=== PATIENT | female | born 1960 | race Caucasian/White ===

== ENCOUNTER → 2024-03-02 | Outpatient (CLI) | payer MEDICARE ==
[2024-03-02 17:12] LABS: INR 0.9 (<1.2); Partial Thromboplastin Time 24.9 sec (22.0-30.0); Prothrombin Time 10.4 sec (10.0-12.5)
[2024-03-03 02:04] LABS: Basophils # (A) 0.05 X 10*3/uL (0.00-0.10); Basophils % (A) 0.8 %; Eosinophils # (A) 0.07 X 10*3/uL (0.04-0.35); Eosinophils % (A) 1.1 %; HCT 41.4 % (37.2-46.3); HGB 13.4 g/dL (12.0-15.0); Lymphocytes # (A) 1.78 X 10*3/uL (0.90-5.00); MCH 29.5 pg (27.0-32.0); MCHC 32.4 g/dL (32.0-37.0); MCV 91.2 FL (80.0-97.0); Monocytes # (A) 0.45 X 10*3/uL (0.20-1.00); Monocytes % (A) 6.8 %; NRBC Per 100 WBC 0 X 10*3/uL (0.00-0.01); Neutrophils # (A) 4.24 X 10*3/uL (1.80-7.70); Neutrophils % (A) 64.1 %; Platelet Count 367 X 10*3/uL (140-440); RBC 4.54 X 10*6/uL (4.10-5.20); RDW 12.7 % (11.5-14.5)
[2024-03-03 02:51] LABS: BUN/Creat Ratio 9.67 Ratio (12.00-20.00); Blood Urea Nitrogen 8.7 mg/dL (9.0-27.0); Chloride 101 mmol/L (96-109); Glucose 111 mg/dL (70-110); Sodium 138 mmol/L (135-145)
[2024-03-03 02:52] LABS: ALT 23 U/L (8-44); AST 34 U/L (13-35); Albumin 4.8 g/dL (3.8-4.9); Albumin/Globulin Ratio 1.78 Ratio (1.60-3.17); Alkaline Phosphatase 91 U/L (41-126); Carbon Dioxide 26.9 mmol/L (21.6-31.8); Globulin 2.7 g/dL (1.6-3.3); Total Bilirubin 0.6 mg/dL (0.3-1.2); Total Protein 7.5 g/dL (6.2-8.2)
== END | disposition home or self-care (01) ==
LOC: LABPAT 16:24
PROVIDERS: ATTEND Orthopaedic Surgery
DX: Z01.812 Encounter for preprocedural laboratory examination (principal); E11.9 Type 2 diabetes mellitus without complications; Z22.322 Carrier or suspected carrier of Methicillin resistant Staphylococcus aureus
CPT/HCPCS: 80053; 83036; 85025; 85610; 85730; 86850; 86900; 86901; 87070

== ENCOUNTER 2024-03-11 06:20 | Day surgery (SDC) | payer MEDICARE ==
[~2024-03-11 06:20] MED LIST: TRANEXAMIC 1,000 MG/100ML-NACL 1,000 MG in SALINE 1 100ML.BAG IV PRN; TRANEXAMIC 1,000 MG/100ML-NACL 1,000 MG in SALINE 1 100ML.BAG IVPB PRN
[2024-03-11] MEDS: LACTATED RINGERS 1,000 ML IV SCH ×2 (07:00→15:10)
[2024-03-11] MEDS: DEXAMETHASONE SOD PHOSPHATE 10 MG/ML 1 ML VIAL IV PRN (07:53)
[2024-03-11] MEDS: FAMOTIDINE 20 MG/2 ML VIAL IVP PRN (07:53)
[2024-03-11] MEDS: ONDANSETRON 4 MG/2 ML VIAL IVP PRN (07:53)
[2024-03-11] MEDS: MIDAZOLAM 2 MG/2 ML VIAL IVP ONE (08:05)
[2024-03-11] MEDS: KETOROLAC 15 MG/ML 1 ML VIAL IVP PRN (08:19)
[2024-03-11] MEDS: ACETAMINOPHEN TAB 500 MG TAB PO PRN (08:20)
[2024-03-11] MEDS: DOCUSATE 100 MG CAP PO PRN (08:20)
[2024-03-11] MEDS: oxyCODONE ER 10 MG TAB.ER.12H PO PRN (08:20)
[2024-03-11] MEDS ORDERED: ROCURONIUM 10 MG/ML (5 ML VIAL) IV ONE (10:10)
[2024-03-11] MEDS ORDERED: PROPOFOL 10 MG/ML 20 ML VIAL IV ONE (10:10)
[2024-03-11] MEDS ORDERED: GLYCOPYRROLATE 0.2 MG/ML 2 ML VIAL ONE (10:10)
[2024-03-11] MEDS ORDERED: MIDAZOLAM 2 MG/2 ML VIAL ONE (10:10)
[2024-03-11] MEDS ORDERED: ROPIVACAINE 5 MG/ML 30 ML VIAL ONE (10:10)
[2024-03-11] MEDS ORDERED: LIDOCAINE 1% INJ 10MG/ML (20 ML MDV) ONE (10:10)
[2024-03-11] MEDS ORDERED: fentaNYL (PF) 50 MCG/ML 2 ML AMP ONE (10:10)
[2024-03-11] MEDS ORDERED: NEOSTIGMINE 1 MG/ML 10 ML VIAL ONE (10:10)
[2024-03-11] MEDS: ROPIVACAINE/EPI/CLONIDINE/KET 50 ML SYRINGE MISCELLANE PRN (10:54)
--- NOTE | 2024-03-11 11:30 | P.ANPRN ---
Procedure Note - Anesthesia - Nerve Block Performed Right [place] Single Time Out Performed: Yes ([id number]) Date of Procedure: 03/11/24 Procedure Start Time: : Procedure Stop Time: 08: Location of Patient: PreOp Indication: Acute Post-Operative Pain, Requested by Surgeon Specifically requested for management of pain by DrBianka: Norman Salgado Sedation Type: Sedate with meaningful contact maintained Preparation: Sterile Prep Position: Supine Catheter: None Needle Types: Pajunk Needle Gauge: 21 Ultrasound used to visualize needle placement: Yes Ultrasound used to observe medication spread: Yes Injectate: 0.5% Ropivacaine (see comment for volume) (30cc) Blood Aspirated: No Pain Paresthesia on Injection Noted: No Resistance on Injection: Normal Image Stored and Saved: Yes Events: Uneventful and Well Tolerated
[2024-03-11] MEDS: LACTATED RINGERS 1,000 ML IV ONE (12:09)
--- NOTE | 2024-03-11 12:12 | P.OP ---
Date of Procedure: 03/11/24 Preoperative Diagnosis: Severe right hip osteoarthritis Postoperative Diagnosis: same Procedure(s) Performed: right direct anterior total hip arthroplasty Implants: 1. [place] Trident II Acetabular Cup, Size #46 2. Claire Insignia Size #3 Femoral Stem, Standard Offset 3. Dual Mobility OD 36 mm, ID 22.2 mm, +0 mm neck Anesthesia: GETA, regional Surgeon: Norman Salgado Software Design Engineer #1: Anali Kulkarni Software Design Engineer #2: Jake Posada Estimated Blood Loss (ml): 200 IV fluids (ml): 1,200 Pathology: none sent Condition: stable Disposition: PACU Indications for Procedure: I had a long discussion with the patient in the office on the potential risks and complications of an elective total hip replacement through a direct anterior approach. Risks discussed include, but are certainly not limited to, risks from anesthesia, superficial infection requiring local wound care or antibiotics, deep blayne-prosthetic joint infection and the treatment required to eradicate infection, intraoperative fracture, postoperative periprosthetic fracture, damage to local blood vessels or nerves particularly the lateral femoral cutaneous nerve, delayed wound healing requiring local wound care or possibly surgical debridement, hip dislocation, leg length discrepancy, soft tissue irritation around the total hip implant such as iliopsoas tendinitis or trochanteric bursitis, wear and osteolysis from the implants, squeaking or audible noises, groin pain, thigh pain, heterotopic ossification, stiffness, aseptic loosening of the implants, dissatisfaction with surgical outcome, need for revision surgery, DVT, PE, swelling of the operative extremity, acute coronary event, stroke, failure to thrive, and possibly loss of life or limb. The patient understands that while these are the most common complications after an elective hip replacement there are certainly other less common complications possible. They were given ample time to ask questions regarding the potential complications of a hip replacement. Following our discussion the patient provided their verbal and written consent to go forward with an elective total hip replacement. Description of Procedure: The patient was identified in the preoperative holding area and the correct hip was marked with my initials. I reviewed the procedure and consent with the patient. All of their questions were answered. The patient was then brought back into the operating room by anesthesia. While on the [facility] anesthesia was administered by the anesthesia team. Preoperative antibiotics and tranexamic acid were also given. After the patient was under anesthesia I examined their ankles to determine their preoperative leg length discrepancy. The skin over the anterior aspect of the hip was shaved to remove hair over the site of planned incision. Both feet and ankles were padded with webril and boots for the Eas[place] were applied. The patient was then carefully transferred onto the [place] table. A perineal post was immediately placed. The arms were placed on arm holders and were well-padded. Both boots were secured to the spars on the Easley table. The patient was positioned so that the pelvis was centered over the post. Nonsterile drapes were applied. A timeout was performed identifying the correct patient, operative extremity, and procedure. At this point fluoroscopy was brought in to take preoperative images of the pelvis and operative hip. Using the standing AP pelvis from the office as a template, a comparable image was obtained with fluoroscopy. A metallic bar was used to create a bi-ischial line for use as a reference to leg length adjustments during the procedure. Global offset was also measured on both the operative and nonoperative leg. Fluoroscopy was then brought out and a pre-scrub using a chlorhexidine scrub brush was performed. The operative limb was then prepped and draped in the standard sterile fashion. An anterior longitudinal incision was made lateral and distal to the ASIS. The skin and subcutaneous tissues were incised sharply. The underlying tensor fascia was identified and incised in its midportion. The fascia was dissected free from the underlying muscle and the muscle belly was retracted. A blunt tipped cobra retractor was placed over the superior neck under the muscle fibers of the gluteus minimus. The deep enveloping fascia of the tensor was incised. The anterior leash of vessels were then identified and cauterized. The fascia between the rectus and the capsule was then incised and the pre-capsular fat was excised. A second Cobra was placed inferior to the neck. The interval between the rectus and iliocapsularis and the hip capsule was developed and a retractor was placed carefully over the anterior rim of the acetabulum. A T-shaped anterior capsulotomy was performed. The superior capsular leaflet was left in place in the inferior capsular flap was excised. The Cobra retractors were placed intracapsularly. We then made a femoral neck osteotomy according to preoperative and intraoperative templating and confirmed the level of the osteotomy using fluoroscopic imaging. The femoral head was removed, passed off to the back table, and sized. The superior capsular flap was excised. Retractors were placed circumferentially exposing the acetabulum. We then circumferentially debrided the acetabulum free of labrum and osteophytes. The pulvinar was removed to fully visualize the cotyloid fossa. We then sequentially reamed to achieve peripheral fit and excellent bleeding subchondral bone. The socket was thoroughly irrigated. The acetabular component was impacted into the appropriate position using fluoroscopy to guide version, inclination, and depth of insertion taking care to have a comparable image of the AP pelvis to the standing image taken in the office. An excellent press-fit was achieved and final position was confirmed using fluoroscopy. The press fit was augmented with bony cancellus dome screws. The liner was then impacted into the socket. Attention was then turned to the femur. The remnant dorsal lateral capsule was excised. The short external rotators were visible and protected. A bone hook was used to confirm appropriate translation of the trochanter away from the acetabulum. The leg was then extended and adducted and the bone hook was used to elevate the femur for broaching. A box osteotome and blunt tipped canal sound was then utilized to gain access to the femoral canal. We then sequentially broached the femur in appropriate anteversion until excellent torsional stability was achieved. The neck cut was brought flush to the trial broach with a calcar planar. A trial neck and head were then placed onto the broach and the hip was atraumatically reduced under direct visualization. External rotation to 90 was performed to assess stability. Fluoroscopy was brought in. An AP and lateral fluoroscopic image of the proximal femur was obtained to assess position and fill of the trial broach. An AP of the pelvis was then obtained and matched to the preoperative image taken. A bi-ischial bar was then placed and measurements were taken to assess changes in length and offset. The hip was then carefully dislocated, the proximal femur was exposed, and the trial implants were removed. The wound and proximal femur was thoroughly irrigated using sterile saline and pulsatile lavage. The final femoral implant was dispensed and gently tapped into place generating an excellent press-fit. The trunnion was cleansed and the final head was tapped into place to engage the Jalloh taper. The acetabulum was irrigated and visualized to be free of debris. The hip was carefully reduced. Stability was checked clinically with external rotation to 90 and there was no evidence of instability. Final fluoroscopic images were taken. The wound was then thoroughly irrigated and soaked with a dilute Betadine rinse for 3 minutes. 3 L of sterile saline was irrigated through the wound using pulsatile lavage. Local anesthetic cocktail was injected into the soft tissues around the surgical field. The wound was then closed in layers. A sterile dressing was placed over the surgical incision. The drapes were taken down and the patient was carefully transferred off of the Easley table. Following removal of the boots the leg lengths felt acceptable. The patient was then taken to recovery room having tolerated the procedure well. Jake Posada PA-C was required as a skilled accounting assistant due to the complexity of surgery for patient positioning, draping, exposure, retraction, closure of wound and application of dressing. PLAN: The patient can weight-bear as tolerated on the operative extremity. DVT prophylaxis with aspirin 81 mg twice a day based on preoperative risk stratification. Physical therapy for gait training. Leave surgical dressing in place. Internal medicine for perioperative medical management. If the patient does well and is comfortable she can go home later this afternoon, otherwise we'll plan on keeping her until tomorrow morning.
--- NOTE | 2024-03-11 12:18 | XR ---
EXAMINATION TYPE: XR Hip Limited RT DATE OF EXAM: 03/11/2024 COMPARISON: NONE HISTORY: Postop TECHNIQUE: One view submitted. FINDINGS: There is postsurgical change compatible hip replacement surgery. IMPRESSION: 1. Postoperative change.
--- NOTE | 2024-03-11 12:19 | FL ---
EXAMINATION TYPE: FL guidance operating room DATE OF EXAM: 03/11/2024 HISTORY: Fluoroscopy time Total dose area product (DAP) in uGy*m?, mGy*cm? (or similar): 2.3872 IMPRESSION: 1. Fluoroscopy time.
[2024-03-11] MEDS ORDERED: HYDROmorphone 0.5 MG/0.5 ML SYRINGE IVP PRN ×3 (12:47)
[2024-03-11] MEDS ORDERED: NALOXONE 0.4 MG/ML 1 ML VIAL IV PRN (12:47)
[2024-03-11] MEDS ORDERED: ONDANSETRON 4 MG/2 ML VIAL IVP PRN (12:47)
[2024-03-11] MEDS ORDERED: MAGNESIUM HYDROXIDE 2,400 MG/30 ML CUP PO PRN (12:47)
[2024-03-11] MEDS: HYDROmorphone 0.5 MG/0.5 ML SYRINGE IVP PRN (13:21)
[2024-03-11] MEDS: ONDANSETRON 4 MG/2 ML VIAL IVP ONE (14:13)
[2024-03-11] MEDS: DEXAMETHASONE SOD PHOSPHATE 4 MG/ML 1 ML VIAL IV ONE (14:13)
--- NOTE | 2024-03-11 17:07 | P.CONS ---
History of Present Illness - Reason for Consult Consult date: 03/11/24 Medical management Requesting physician: Norman Salgado - Chief Complaint Right hip surgery - History of Present Illness Very pleasant 63-year-old patient follows Dr. Morales. Chronic stable medical conditions include hypertension, hyperlipidemia, osteoarthritis. Anxiety. Patient has undergone right total hip arthroplasty. Postprocedure laying in bed. Pain controlled. No nausea vomiting. No cardiac symptoms. Review of systems: GEN.: Tired EYES: None HEENT: None NECK: None RESPIRATORY: None CARDIOVASCULAR: None GASTROINTESTINAL: None GENITOURINARY: None MUSCULOSKELETAL: Joint pains e LYMPHATICS: None HEMATOLOGICAL: None PSYCHIATRY: None NEUROLOGICAL: None Social history: Lives alone. Alcohol socially. No smoking. Retired Physical examination: VITAL SIGNS: 97.6, 66, 18, 139/85, 96% room air GENERAL: BMI 27.8, reclining in bed, comfortable EYES: Pupils equal. Conjunctiva maddison l. HEENT: External appearance of nose and ears normal, oral cavity grossly normal. NECK: JVD not raised; masses not palpable. HEART: First and second heart sounds are normal; no edema. LUNGS: Respiratory rate normal; clear to auscultation. ABDOMEN: Soft, nontender, liver spleen not palpable, no masses palpable. PSYCH: Alert and oriented x3; mood and affect maddison l. MUSCULOSKELETAL:No Clubbing/cyanosis;muscles-grossly intact. OA. Incision over right hip surgical incision NEUROLOGICAL: Cranial nerves grossly intact; no facial asymmetry, power and sensation grossly intact. LYMPHATICS: No lymph nodes palpable in the axilla and neck INVESTIGATIONS, reviewed in the clinical context: March 02, 2024: White count 6.6 hemoglobin 13.4 platelets 367 sodium 138 potassium 4 BUN 8.7 creatinine 0.9 Assessment plan: -Right total hip arthroplasty Pain control. Aspirin for DVT prophylaxis -Anxiety Paxil 15 mg a day -Hyperlipidemia Lipitor 20 mg a day -Essential hypertension Vasotec 20 mg a day -Primary osteoarthritis Voltaren gel. Pain medications -Full code Care was discussed with the patient. Questions answered. Thank you Dr. Salgado Past Medical History Past Medical History: Hyperlipidemia, Hypertension, Osteoarthritis (OA) History of Any Multi-Drug Resistant Organisms: None Reported Past Surgical History: No Surgical Hx Reported Past Anesthesia/Blood Transfusion Reactions: No Reported Reaction Past Psychological History: Anxiety Smoking Status: Never smoker Past Alcohol Use History: Rare Past Drug Use History: None Reported - Past Family History Father Family Medical History: Cancer Additional Family Medical History / Comment(s): bone Medications and Allergies Home Medications Medication Instructions Recorded Confirmed Type Atorvastatin [Lipitor] 20 mg PO DAILY 03/09/24 03/11/24 History Celecoxib 200 mg PO BID 03/09/24 03/11/24 History Enalapril Maleate [Vasotec] 20 mg PO DAILY 03/09/24 03/11/24 History Multivitamins, Thera [Multivitamin 1 tab PO DAILY 03/09/24 03/11/24 History (formulary)] PARoxetine [Paxil] 15 mg PO DAILY 03/09/24 03/11/24 History Torodol (Unk) 1 dose PO DIRECTED 03/09/24 03/11/24 History Aspirin 81 mg PO BID #60 tab 03/11/24 Rx Diclofenac Sodium [Voltaren] 75 mg PO BID #60 tab 03/11/24 Rx Docusate [Colace] 100 mg PO BID #60 capsule 03/11/24 Rx HYDROcodone/APAP 7.5-325MG [[place] 1 each PO Q6HR PRN #28 tab 03/11/24 Rx 7.5-325] Omeprazole 20 mg PO DAILY #30 tab 03/11/24 Rx Ondansetron [Zofran] 4 mg PO Q6HR PRN #30 tab 03/11/24 Rx Allergies Allergy/AdvReac Type Severity Reaction Status Date / Time No Known Allergies Allergy Verified 03/11/24 06:57 Physical Exam Vitals: Vital Signs Temp Pulse Resp BP Pulse Ox 03/11/24 14:31 97 F L 03/11/24 14:30 60 139/85 96 03/11/24 14:02 97.6 F 66 18 142/82 93 L 03/11/24 13:45 64 16 120/72 97 03/11/24 13:30 63 16 138/76 97 03/11/24 13:15 68 16 142/75 96 03/11/24 13:00 63 14 140/72 100 03/11/24 12:45 97.2 F L 75 14 157/80 100 03/11/24 08:11 63 16 157/77 97 03/11/24 07:17 98.9 F 69 16 182/90 99 Intake and Output 03/11/24 03/11/24 03/11/24 06:59 14:59 22:59 Intake Total 1150 Output Total 200 Balance 950 Intake: IV 1150 Output: Estimated Blood Loss 200 Other: Weight 75.8 kg
[2024-03-11] MEDS: HYDROcodone/APAP 5-325MG 1 EACH TAB PO PRN (20:08)
[2024-03-11] MEDS: ASPIRIN 81 MG PO SCH (20:09)
[2024-03-11] MEDS: SENNOSIDES-DOCUSATE SODIUM 1 EACH TAB PO SCH (20:09)
[2024-03-12 05:37] LABS: Glucose,Whole Blood 110 mg/dL (70-110)
--- NOTE | 2024-03-12 06:04 | CT ---
EXAM: CT Head Without Intravenous Contrast CLINICAL HISTORY: ITS.REASON CT Reason: Neuro deficit, acute, stroke suspected TECHNIQUE: Axial computed tomography images of the head/brain without intravenous contrast. CTDI is 48.8 mGy and DLP is 1087.9 mGy-cm. This CT exam was performed using one or more of the following dose reduction techniques: automated exposure control, adjustment of the mA and/or kV according to patient size, and/or use of iterative reconstruction technique. COMPARISON: No relevant prior studies available. FINDINGS: Brain: Unremarkable. No hemorrhage. No significant white matter disease. No edema. Ventricles: Unremarkable. No ventriculomegaly. Bones/joints: Unremarkable. No acute fracture. Soft tissues: Unremarkable. Sinuses: Unremarkable as visualized. No acute sinusitis. Mastoid air cells: Unremarkable as visualized. No mastoid effusion. IMPRESSION: Normal head/brain CT.
[2024-03-12 06:08] LABS: Glucose,Whole Blood 96 mg/dL (70-110)
--- NOTE | 2024-03-12 06:17 | CT ---
EXAM: CT Angiography Head With Intravenous Contrast CLINICAL HISTORY: ITS.REASON CT Reason: Neuro deficit, acute, stroke suspected TECHNIQUE: Axial computed tomographic angiography images of the head with intravenous contrast. CTDI is 18.8 mGy and DLP is 206.4 mGy-cm. This CT exam was performed using one or more of the following dose reduction techniques: automated exposure control, adjustment of the mA and/or kV according to patient size, and/or use of iterative reconstruction technique. MIP reconstructed images were created and reviewed. COMPARISON: No relevant prior studies available. FINDINGS: Right internal carotid artery: No acute findings. Intracranial segment is patent with no significant stenosis. No aneurysm. Right anterior cerebral artery: Unremarkable. No occlusion or significant stenosis. No aneurysm. Right middle cerebral artery: Unremarkable. No occlusion or significant stenosis. No aneurysm. Right posterior cerebral artery: Unremarkable. No occlusion or significant stenosis. No aneurysm. Right vertebral artery: Unremarkable as visualized. Left internal carotid artery: No acute findings. Intracranial segment is patent with no significant stenosis. No aneurysm. Left anterior cerebral artery: Unremarkable. No occlusion or significant stenosis. No aneurysm. Left middle cerebral artery: Unremarkable. No occlusion or significant stenosis. No aneurysm. Left posterior cerebral artery: Unremarkable. No occlusion or significant stenosis. No aneurysm. Left vertebral artery: Unremarkable as visualized. Basilar artery: Unremarkable. No occlusion or significant stenosis. No aneurysm. IMPRESSION: Normal head CTA. EXAM: CT Angiography Neck With Intravenous Contrast CLINICAL HISTORY: ITS.REASON CT Reason: Neuro deficit, acute, stroke suspected TECHNIQUE: Routine carotid CT angiography protocol was performed with intravenous contrast. NASCET criteria using the distal ICAs for comparison were used for evaluation of stenoses. CTDI is 18.8 mGy and DLP is 206.4 mGy-cm. This CT exam was performed using one or more of the following dose reduction techniques: automated exposure control, adjustment of the mA and/or kV according to patient size, and/or use of iterative reconstruction technique. MIP reconstructed images were created and reviewed. COMPARISON: None. FINDINGS: VASCULATURE: Right common carotid artery: Unremarkable. No occlusion or significant stenosis. No dissection. Right internal carotid artery: Unremarkable. Extracranial segment is patent with no occlusion or significant stenosis. No dissection. Right external carotid artery: Unremarkable. No occlusion. Right vertebral artery: Unremarkable. No occlusion or significant stenosis. No dissection. Left common carotid artery: Unremarkable. No occlusion or significant stenosis. No dissection. Left internal carotid artery: Unremarkable. Extracranial segment is patent with no occlusion or significant stenosis. No dissection. Left external carotid artery: Unremarkable. No occlusion. Left vertebral artery: Unremarkable. No occlusion or significant stenosis. No dissection. NECK: Bones/joints: Unremarkable. No acute fracture. Soft tissues: Unremarkable. Lung apices: Clear. CAROTID STENOSIS REFERENCE USING NASCET CRITERIA: % ICA stenosis = (1 - narrowest ICA diameter/diameter of distal cervical ICA) x 100. Mild - <50% stenosis. Moderate - 50-69% stenosis. Severe - 70-94% stenosis. Near occlusion - 95-99% stenosis. Occluded - 100% stenosis. IMPRESSION: Negative CTA neck.
[2024-03-12 07:02] LABS: Basophils # (A) 0.1 k/uL (0-0.2); Basophils % (A) 1 %; Eosinophils # (A) 0.1 k/uL (0-0.7); Eosinophils % (A) 1 %; HCT 34.6 % (34.0-46.0); HGB 11.3 gm/dL (11.4-16.0); Lymphocytes # (A) 1.6 k/uL (1.0-4.8); Lymphocytes % (A) 16 %; MCHC 32.5 g/dL (31.0-37.0); MCV 92.4 fL (80.0-100.0); Mean Platelet Volume 7.5; Monocytes # (A) 0.7 k/uL (0-1.0); Monocytes % (A) 8 %; Neutrophils % (A) 73 %; Platelet Count 282 k/uL (150-450); RBC 3.75 m/uL (3.80-5.40); RDW 12.8 % (11.5-15.5); WBC 9.6 k/uL (3.8-10.6)
[2024-03-12 07:11] LABS: ALT 13 U/L (4-34); AST 44 U/L (14-36); African American GFR (CKD) 81 (>60 ml/min/1.73 sqM); Albumin 3.3 g/dL (3.5-5.0); Albumin/Globulin Ratio 1.4; Alkaline Phosphatase 64 U/L (38-126); Anion Gap 1 mmol/L; Blood Urea Nitrogen 12 mg/dL (7-17); Calcium 8.9 mg/dL (8.4-10.2); Carbon Dioxide 28 mmol/L (22-30); Chloride 104 mmol/L (98-107); Globulin 2.4 g/dL; Glucose 101 mg/dL (74-99); Non-African American GFR(CKD) 70 (>60 ml/min/1.73 sqM); Partial Thromboplastin Time 23.5 sec (22.0-30.0); Potassium 4.4 mmol/L (3.5-5.1); Sodium 133 mmol/L (137-145); Total Bilirubin 0.9 mg/dL (0.2-1.3); Total Protein 5.7 g/dL (6.3-8.2)
--- NOTE | 2024-03-12 07:33 | P.PN ---
Subjective Progress Note Date: 03/12/24 early this morning the patient was noted by nursing to have facial droop and right-sided weakness. A code stroke was called. Her symptoms were worked up with a CT and CTA both of which were normal. She was transferred to the ICU. This morning she is doing relatively well. All of her symptoms have resolved. She has mild discomfort in her right hip but is otherwise without complaints. She denies chest pain or shortness of breath. She denies feeling lightheaded. She denies weakness. Objective - Vital Signs Vital signs: Vital Signs Temp 98.2 F 03/12/24 06:20 Pulse 75 03/12/24 06:20 Resp 16 03/12/24 06:20 BP 147/82 03/12/24 06:20 Pulse Ox 98 03/12/24 06:20 FiO2 Intake & Output 03/11/24 03/12/24 03/12/24 18:59 06:59 18:59 Intake Total 1150 Output Total 200 Balance 950 Weight 75.8 kg Intake: IV 1150 Output: Estimated Blood Loss 200 Other: Voiding Method Toilet # Voids 1 1 - Exam the patient is resting comfortably in her bed. She is alert and able to answer questions. Her head is normocephalic and atraumatic. She does not appear to have any facial droop or asymmetric weakness. She has good strength in her right arm. A focused exam of the right lower extremity was conducted. There is no intact dressing over the anterior aspect of her right hip. Her thigh and calf are soft. Femoral nerve function is intact. She is able to actively plantarflex and dorsiflex her ankle and her toes. - Labs CBC & Chem 7: 03/12/24 06:43 03/12/24 06:43 Labs: Abnormal Lab Results - Last 24 Hours (Table) 03/12/24 03/12/24 Range/Units 06:43 06:43 RBC 3.75 L (3.80-5.40) m/uL Hgb 11.3 L (11.4-16.0) gm/dL Sodium 133 L (137-145) mmol/L Glucose 101 H (74-99) mg/dL AST 44 H (14-36) U/L Total Protein 5.7 L (6.3-8.2) g/dL Albumin 3.3 L (3.5-5.0) g/dL Assessment and Plan Assessment: postoperative day #1 status post right direct anterior total hip arthroplasty Resolving right-sided facial droop and weakness Plan: 1. Weight bear as tolerated on the operative extremity, up with assistance and a walker 2. DVT prophylaxis with aspirin 81 mg BID 3. 2 doses of post operative antibiotics 4. Leave surgical dressing in place 5. Internal medicine for blayne-operative medical management. appreciate ICU and medical consultations assistance and management of her postoperative medical issues 6. Physical therapy for gait training and mobilization 7. Dispo: I would like the patient to work with physical therapy today if cleared by medicine. The patient can discharge home when she is medically stable and cleared by internal medicine.
[2024-03-12] MEDS: HYDROcodone/APAP 7.5-325MG 1 EACH TAB PO PRN (08:27)
[2024-03-12] MEDS: ATORVASTATIN 20 MG TAB PO SCH (08:27)
[2024-03-12] MEDS: lisinopriL 20 MG TAB PO SCH (08:28)
[2024-03-12] MEDS: FAMOTIDINE 20 MG TAB PO SCH (08:28)
[2024-03-12] MEDS: PARoxetine 10 MG TAB PO SCH (08:42)
--- NOTE | 2024-03-12 17:05 | P.PN ---
Subjective Progress Note Date: 03/12/24 Medical management Requesting physician: Norman Salgado - Chief Complaint Right hip surgery - History of Present Illness Very pleasant 63-year-old patient follows Dr. Morales. Chronic stable medical conditions include hypertension, hyperlipidemia, osteoarthritis. Anxiety. Patient has undergone right total hip arthroplasty. Postprocedure laying in bed. Pain controlled. No nausea vomiting. No cardiac symptoms. 03/12/2024 Patient is seen this morning in the ICU as patient was called a code stroke earlier this morning. Nursing staff assessing the patient and noticed a right- sided facial droop and noted to have facial slurring and some mild right upper extremity weakness. Patient underwent angio CT as well as CT of the brain which were negative with no acute process noted. Neurology was consulted and at the time of examination, symptoms have resolved. Patient is status post right hip arthroplasty yesterday. Patient feels it was possibly related to narcotic medication although will undergo further neurological workup. Patient is afebrile denies chest pain or shortness of breath. Patient reports able to tolerate diet with no reported nausea or vomiting Review of systems: Constitutional: No reports of fatigue, fever, or chills Cardiovascular: No reports of chest pain or palpitations Respiratory: No reports of shortness of breath or cough GI: No reports of nausea, vomiting, or diarrhea : No reports of dysuria or retention Neurovascular: reports of generalized weakness with some right hip discomfort All medications have been reviewed Physical exam: Gen: This is a 63-year-old female who is awake, alert and oriented x 3, well- developed, well-nourished HEENT: Head is atraumatic, normocephalic. Pupils equal, round. Sclerae is anicteric. NECK: Supple. No JVD. No lymphadenopathy. No thyromegaly. LUNGS: Clear to auscultation. No wheezes or rhonchi. No intercostal retractions. HEART: Regular rate and rhythm. No murmur. ABDOMEN: Soft. Bowel sounds are present. No masses. No tenderness. EXTREMITIES: No pedal edema. No calf tenderness. Right hip surgical site is dry with no significant redness or swelling noted NEUROLOGICAL: Patient is awake, alert and oriented x3. Cranial nerves 2 through 12 are grossly intact. Upper extremity strength bilaterally 5/5, lower extremities left 5 x 5, right 4 x 5, limited due to hip surgery yesterday and discomfort Assessment: -Status post right total hip arthroplasty -Right-sided facial droop with upper extremity weakness and slurring, possible acute TIA, CT brain was negative -History of anxiety -Hyperlipidemia -Essential hypertension -Primary osteoarthritis -GI prophylaxis -DVT prophylaxis -Full code Plan: Patient is status post right total hip arthroplasty awaiting to work with physical therapy and was transferred down to the ICU after code stroke was called as patient was noted to have right facial droop with slurring and right upper extremity weakness. Patient feels it was possibly medication effect she had just received pain medications Neurology consulted and underwent CT of the brain which was negative, angio was negative. Patient currently on baby aspirin twice daily per orthopedics and w ill await neurological recommendations Follow-up on repeat labs and review and resume home medications as appropriate We will continue to follow with orthopedics during hospitalization and if requiring further workup other than surgical intervention, may transfer to medicine service for continued care Thank you kindly for this consultation. The impression and plan of care has been dictated by Dunia Woodard, Nurse Practitioner as directed. Dr. Caleb MD I have performed a history and examination and MDM of this patient, discussed the same with the dictator, and agree with the dictator's assessment and plan as written ,documented as a scribe. Based on total visit time, I have performed more than 50% of the visit. Objective - Vital Signs Vital signs: Vital Signs Temp 98.2 F 03/12/24 06:20 Pulse 61 03/12/24 08:26 Resp 15 03/12/24 08:26 BP 136/71 03/12/24 08:26 Pulse Ox 96 03/12/24 08:26 FiO2 Intake & Output 03/11/24 03/12/24 03/12/24 18:59 06:59 18:59 Intake Total 1150 5 Output Total 200 300 Balance 950 -295 Weight 75.8 kg Intake: IV 1150 5 Invasive Line 1 5 Output: Urine 300 Estimated Blood Loss 200 Other: Voiding Method Toilet Toilet Bedpan # Voids 1 1 1 - Labs CBC & Chem 7: 03/12/24 06:43 03/12/24 06:43 Labs: Abnormal Lab Results - Last 24 Hours (Table) 03/12/24 03/12/24 Range/Units 06:43 06:43 RBC 3.75 L (3.80-5.40) m/uL Hgb 11.3 L (11.4-16.0) gm/dL Sodium 133 L (137-145) mmol/L Glucose 101 H (74-99) mg/dL AST 44 H (14-36) U/L Total Protein 5.7 L (6.3-8.2) g/dL Albumin 3.3 L (3.5-5.0) g/dL
[2024-03-13 03:30] LABS: Glucose,Whole Blood 155 mg/dL (70-110)
[2024-03-13] MEDS: SODIUM CHLORIDE 0.9% 1,000 ML IV SCH (04:43)
--- NOTE | 2024-03-13 08:39 | P.CNNES ---
History of Present Illness Consult date: 03/12/24 Requesting physician: Juan Antonio Redman Reason for Consult: Code stroke History of Present Illness: Patient is a 63-year-old right-handed female with history of hypertension, hyperlipidemia, came to the hospital yesterday for elective right total hip arthroplasty. It was performed uneventfully. Apparently patient has acute stroke symptoms noted early this morning at 5:30 AM. As per nursing note as below: "RN into patient's room at 0530 to saline lock patient and assess pain prior to dayshift; noticed patient had some slur to her speech when RN asked her about needing pain medication/bathroom and RN then noticed that patient looked to have right sided facial droop. RN turned on more lighting and patient was showing obvious facial drooping with rest & smiling. RN asked patient to hold up arms and patient moved right arm but initally could not pick up attendant. This was a change in patient's baseline as prior to this she was not displaying facial droop, any weakness, and was a standby assist with walker. [place] [id number] at 0532am." Patient at present tells me that at 5:30 AM today, patient developed right facial droop, slurred speech and right arm became weak. Symptoms lasted until 10 PM and then went away. At present she has no residual symptoms. She feels perfectly fine. Patient underwent CT head, which revealed no acute process. CTA of the head was normal. CTA of the neck was also normal. Patient was not a candidate for tPA, or thrombectomy. Subsequent NIH stroke scale was 1. Patient has history of hypertension and hyperlipidemia. Denies diabetes. No previous history of strokes or TIA. She has never smoked. Drinks alcohol socially. She does not take any blood thinners at home, although in the hospital she has been placed on aspirin 81 mg twice a day. Review of Systems Constitutional: Denies chills, Denies fever Eyes: denies blurred vision, denies diplopia, denies pain Ears, nose, mouth and throat: Denies headache, Denies sore throat Cardiovascular: Denies chest pain, Denies shortness of breath Respiratory: Denies cough, Denies excessive sputum Gastrointestinal: Denies abdominal pain, Denies diarrhea, Denies nausea, Denies vomiting Musculoskeletal: Denies low back pain, Denies neck pain Integumentary: Denies pruritus, Denies rash Neurological: Reports as per HPI Psychiatric: Denies anxiety, Denies depression Endocrine: Denies fatigue, Denies weight change Past Medical History Past Medical History: Hyperlipidemia, Hypertension, Osteoarthritis (OA) History of Any Multi-Drug Resistant Organisms: None Reported Past Surgical History: No Surgical Hx Reported Past Anesthesia/Blood Transfusion Reactions: No Reported Reaction Past Psychological History: Anxiety Smoking Status: Never smoker Past Alcohol Use History: Rare Past Drug Use History: None Reported - Past Family History Father Family Medical History: Cancer Additional Family Medical History / Comment(s): bone Medications and Allergies Home Medications Medication Instructions Recorded Confirmed Type Atorvastatin [Lipitor] 20 mg PO DAILY 03/09/24 03/11/24 History Celecoxib 200 mg PO BID 03/09/24 03/11/24 History Enalapril Maleate [Vasotec] 20 mg PO DAILY 03/09/24 03/11/24 History Multivitamins, Thera [Multivitamin 1 tab PO DAILY 03/09/24 03/11/24 History (formulary)] PARoxetine [Paxil] 15 mg PO DAILY 03/09/24 03/11/24 History Torodol (Unk) 1 dose PO DIRECTED 03/09/24 03/11/24 History Aspirin 81 mg PO BID #60 tab 03/11/24 Rx Diclofenac Sodium [Voltaren] 75 mg PO BID #60 tab 03/11/24 Rx Docusate [Colace] 100 mg PO BID #60 capsule 03/11/24 Rx HYDROcodone/APAP 7.5-325MG [[place] 1 each PO Q6HR PRN #28 tab 03/11/24 Rx 7.5-325] Omeprazole 20 mg PO DAILY #30 tab 03/11/24 Rx Ondansetron [Zofran] 4 mg PO Q6HR PRN #30 tab 03/11/24 Rx Allergies Allergy/AdvReac Type Severity Reaction Status Date / Time No Known Allergies Allergy Verified 03/11/24 06:57 Physical Examination - Vital Signs Vital Signs: Vital Signs Temp Pulse Pulse Resp BP BP Pulse Ox 03/12/24 11:23 98.2 F 82 16 149/72 98 03/12/24 08:26 61 15 136/71 96 03/12/24 06:20 98.2 F 75 16 147/82 98 03/12/24 05:35 63 20 131/81 95 06/01/24 02:05 98.4 F 65 18 105/69 95 03/11/24 19:15 97.6 F 67 18 131/79 92 L 03/11/24 16:30 57 L 124/77 94 L 03/11/24 16:15 56 L 128/75 94 L 03/11/24 16:00 57 L 117/75 94 L 03/11/24 15:45 56 L 125/78 93 L 03/11/24 15:30 56 L 125/78 92 L 03/11/24 15:15 56 L 131/81 93 L 03/11/24 15:01 67 130/80 93 L 03/11/24 14:31 97 F L 03/11/24 14:30 60 139/85 96 03/11/24 14:02 97.6 F 66 18 142/82 93 L 03/11/24 13:45 64 16 120/72 97 03/11/24 13:30 63 16 138/76 97 Intake and Output 03/11/24 03/12/24 03/12/24 22:59 06:59 14:59 Intake Total 245 Output Total 300 Balance -55 Intake: IV 5 Invasive Line 1 5 Oral 240 Output: Urine 300 Other: Voiding Method Toilet Toilet Bedpan # Voids 1 1 Patient is a young-looking elderly female, in no acute distress. Patient is alert awake oriented to time place and person. Speech and language functions are normal. Patient can name and repeat very well. No aphasia or dysarthria. Attention, concentration and fund of knowledge is adequate. On cranial nerve examination, pupils are equal, round and reacting to light, visual chow are full on confrontation, with no neglect on double simultaneous stimulation. Extraocular muscles are intact with no nystagmus. Face is symmetric, tongue protrudes to the midline. Palatal elevation and sensation normal, hearing and shoulder shrug normal, facial sensation normal. On muscle strength testing, there is no pronator drift and the strength is normal in arms and legs distally and proximally. Deep tendon reflexes are symmetric 2 all over and plantars downgoing bilaterally. Sensory to touch is equal with no neglect on double simultaneous stimulation. Cerebellar function showed no ataxia for [id number] testing. No dysdiadochokinesia. No ataxia for [id number]-[id number] testing on either side. Tone and bulk of muscles normal. Gait deferred.. On general examination, there is no carotid bruit or murmur, S1-S2 audible. Chest is clear on consultation. Abdomen is soft nontender. No organomegaly, bowel sounds present. Peripheral pulses are present. No peripheral edema. Results - Laboratory Findings CBC and BMP: 03/12/24 06:43 03/12/24 06:43 Abnormal Lab Findings: Abnormal Labs 03/12/24 03/12/24 06:43 06:43 RBC 3.75 L Hgb 11.3 L Sodium 133 L Glucose 101 H AST 44 H Total Protein 5.7 L Albumin 3.3 L Assessment and Plan Assessment: * Probable TIA, manifesting with right facial droop, slurred speech and right arm weakness. Symptoms have completely resolved. Current NIH stroke scale is 0. * Hypertension * Hyperlipidemia * Status post right knee arthroplasty Plan: Patient's symptoms have resolved. Current NIH stroke scale is 0. Patient not a candidate for TPA or thrombectomy. 2-D echo with bubble study to rule out PFO CTA head and neck normal. Fasting a.m. lipid panel Hemoglobin A1c 5.8 Optimize control of blood pressure Agree with starting aspirin 81 mg twice a day. Patient's ABCD2 score was 5, which is moderate risk. May consider dual antiplatelet medication for 21 days (including aspirin 81 mg and Plavix 75 mg) if no post-surgical contraindication. After 21 days, may stop Plavix. Neuro checks every 2 hours. Consider 30 day event monitor at discharge to rule out PAF. Telemetry monitoring rule out any arrhythmia PT, OT, speech therapy DVT prophylaxis: Heparin 5000 units subcu every 8 hours Neurology will continue to follow. Thank you for the consult.
[2024-03-13] MEDS ORDERED: traMADol 50 MG TAB PO PRN (08:52)
--- NOTE | 2024-03-13 08:53 | P.PN ---
Subjective Progress Note Date: 03/13/24 Principal diagnosis: Status post right total hip arthroplasty This is a 63 year-old female post right total hip arthroplasty. This is post-op day 2. The patient was evaluated at the bedside today. The patient denies nausea, vomiting, abdominal pain, shortness of breath, and chest pain this morning. She states her pain is moderately controlled at this time. She states she would like her pain medications scheduled instead of PRN. The patient has been up with physical therapy but states she is feeling "woozy" at times and passed out this morning. Objective - Vital Signs Vital signs: Vital Signs Temp 97.7 F 03/13/24 04:00 Pulse 81 03/13/24 07:08 Resp 18 03/13/24 04:00 BP 135/78 03/13/24 07:08 Pulse Ox 94 L 03/13/24 04:00 FiO2 Intake & Output 03/12/24 03/13/24 03/13/24 18:59 06:59 18:59 Intake Total 245 Output Total 675 Balance -430 Intake: IV 5 Invasive Line 1 5 Oral 240 Output: Urine 675 Other: Voiding Method Toilet Toilet Bedpan # Voids 1 1 - Exam The patient does not appear in acute distress. Alert and orientated x3. Dressing is clean dry and intact. Incision appears fine with no erythema or active drainage. Calf is soft and nontender. Good foot and ankle motion without difficulty. Sensation and circulatory status is intact. - Labs CBC & Chem 7: 03/12/24 06:43 03/12/24 06:43 Labs: Abnormal Lab Results - Last 24 Hours (Table) 03/13/24 Range/Units 03:29 POC Glucose (mg/dL) 155 H (70-110) mg/dL Assessment and Plan (1) Primary osteoarthritis of right hip Current Visit: Yes Status: Acute Code(s): M16.11 - UNILATERAL PRIMARY OSTEOARTHRITIS, RIGHT HIP SNOMED Code(s): 084331547832346 (2) Status post right hip replacement Current Visit: Yes Status: Acute Code(s): Z96.641 - PRESENCE OF RIGHT ARTIFICIAL HIP JOINT SNOMED Code(s): 895383060 Plan: 1. Continue pain control 2. Anticoagulation with Aspirin 81 mg 3. Continue physical therapy and ambulation 4. Anticipate discharge home likely tomorrow if she is feeling ok and cleared by internal medicine and neurology.
[2024-03-13] MEDS: HYDROcodone/APAP 5-325MG 1 EACH TAB PO SCH (09:29)
[2024-03-13 10:21] LABS: Chol/HDL Ratio 2.66 Ratio; LDL Cholesterol,Calculated 64.8 mg/dL (0.0-131.0)
--- NOTE | 2024-03-13 13:46 | CA ---
Transthoracic Echo Report Name: Emily Rizvi Age: 63 Gender: F : 1960 Exam Date: 03/12/2024 13:47 Exam Location: [facility] Ht (in): 65 Wt (lb): 167 Ordering Physician: Delfina Pierre MD Attending/Referring Phys: Fuel Pilot Engineer Sindi Villarreal RDCS Procedure CPT: Indications: stroke/tia Cardiac Hx: Technical Quality: Good Contrast 1: Agitated Saline Total Dose (mL): Contrast 2: Total Dose (mL): MEASUREMENTS (Male / Female) Normal Values 2D ECHO LV Diastolic Diameter PLAX 4.4 cm 4.2 - 5.9 / 3.9 - 5.3 cm LV Systolic Diameter PLAX 2.8 cm IVS Diastolic Thickness 1.1 cm 0.6 - 1.0 / 0.6 - 0.9 cm LVPW Diastolic Thickness 1.1 cm 0.6 - 1.0 / 0.6 - 0.9 cm LV Relative Wall Thickness 0.5 RV Internal Dim ED PLAX 2.6 cm LA Systolic Diameter LX 3.6 cm 3.0 - 4.0 / 2.7 - 3.8 cm LV Diastolic Volume MOD BP 63.4 cm??? 67 - 155 / 56 - 104 cm??? LV Systolic Volume MOD BP 14.7 cm??? 22 - 58 / 19 - 49 cm??? LV Ejection Fraction MOD BP 76.8 % >= 55 % LV Diastolic Volume MOD 4C 70.0 cm??? LV Systolic Volume MOD 4C 15.8 cm??? LV Ejection Fraction MOD 4C 77.4 % LV Diastolic Length 4C 7.8 cm LV Systolic Length 4C 5.8 cm LV Diastolic Volume MOD 2C 48.6 cm??? LV Systolic Volume MOD 2C 11.0 cm??? LV Ejection Fraction MOD 2C 77.4 % LV Diastolic Length 2C 6.5 cm LV Systolic Length 2C 4.6 cm LA Volume 59.6 cm??? 18 - 58 / 22 - 52 cm??? LA Volume Index 31.7 cm???/m??? 16 - 28 cm???/m??? M-MODE Aortic Root Diameter MM 2.6 cm LA Systolic Diameter MM 3.3 cm LA Ao Ratio MM 1.2 AV Cusp Separation MM 1.8 cm DOPPLER AV Peak Velocity 177.9 cm/s AV Peak Gradient 12.7 mmHg MV Area PHT 3.0 cm??? Mitral E Point Velocity 69.8 cm/s Mitral A Point Velocity 87.7 cm/s Mitral E to A Ratio 0.8 MV Deceleration Time 254.7 ms TR Peak Velocity 223.7 cm/s TR Peak Gradient 20.0 mmHg Right Ventricular Systolic Press 24.8 mmHg FINDINGS Left Ventricle Left ventricular ejection fraction is estimated at 55-60 %. Mildly increased septal wall thickness. Mildly increased posterior wall thickness. Left ventricular cavity size normal. No obvious regional wall motion abnormalities. Right Ventricle Normal right ventricular size and function. Right ventricular systolic pressure within normal limits. Right Atrium Normal right atrial size. Negative agitated saline bubble study for right to left shunt. Left Atrium Mildly increased left atrial volume. No spontaneous echo contrast seen in the left atrium. No evidence for an atrial septal defect. Mitral Valve Structurally normal mitral valve. Trace mitral regurgitation. No mitral stenosis. Aortic Valve Trileaflet aortic valve. No aortic valve stenosis or regurgitation. Tricuspid Valve Structurally normal tricuspid valve. Mild tricuspid regurgitation. Pulmonic Valve Structurally normal pulmonic valve. No pulmonic stenosis. No pulmonic regurgitation. Pericardium Minimal pericardial effusion (normal variant). Aorta Normal size aortic root and proximal ascending aorta. CONCLUSIONS Preserved LV size and systolic function Suboptimal bubble study Previewed by: Dr. Rios Dang MD (Electronically Signed) Final Date: 13 March 2024 13:45
--- NOTE | 2024-03-13 19:52 | P.PN ---
Subjective Progress Note Date: 03/13/24 Medical management Requesting physician: Norman Salgado - Chief Complaint Right hip surgery - History of Present Illness Very pleasant 63-year-old patient follows Dr. Morales. Chronic stable medical co nditions include hypertension, hyperlipidemia, osteoarthritis. Anxiety. Patient has undergone right total hip arthroplasty. Postprocedure laying in bed. Pain controlled. No nausea vomiting. No cardiac symptoms. 03/12/2024 Patient is seen this morning in the ICU as patient was called a code stroke earlier this morning. Nursing staff assessing the patient and noticed a right- sided facial droop and noted to have facial slurring and some mild right upper extremity weakness. Patient underwent angio CT as well as CT of the brain which were negative with no acute process noted. Neurology was consulted and at the time of examination, symptoms have resolved. Patient is status post right hip arthroplasty yesterday. Patient feels it was possibly related to narcotic medication although will undergo further neurological workup. Patient is afebrile denies chest pain or shortness of breath. Patient reports able to tolerate diet with no reported nausea or vomiting 03/13/2024 Patient is evaluated today in follow up. Has been transitioned out of the ICU and on the stepdown unit. Neurology following. Patients right sided facial droop, facial slurring and right upper ext. weakness did resolve. Patient went to stand up today had an episode again while up ambulating. Had positive orthos went from 175 to 152 systolic. Symptoms completely resolved. Echocardiogram comes back revealing preserved LV size and systolic function with suboptimal bubble study. Review of systems: Constitutional: No reports of fatigue, fever, or chills Cardiovascular: No reports of chest pain or palpitations Respiratory: No reports of shortness of breath or cough GI: No reports of nausea, vomiting, or diarrhea : No reports of dysuria or retention Neurovascular: reports of generalized weakness with some right hip discomfort All medications have been reviewed Physical exam: Gen: This is a 63-year-old female who is awake, alert and oriented x 3, well- developed, well-nourished HEENT: Head is atraumatic, normocephalic. Pupils equal, round. Sclerae is anicteric. NECK: Supple. No JVD. No lymphadenopathy. No thyromegaly. LUNGS: Clear to auscultation. No wheezes or rhonchi. No intercostal retracti ons. HEART: Regular rate and rhythm. No murmur. ABDOMEN: Soft. Bowel sounds are present. No masses. No tenderness. EXTREMITIES: No pedal edema. No calf tenderness. Right hip surgical site is dry with no significant redness or swelling noted NEUROLOGICAL: Patient is awake, alert and oriented x3. Cranial nerves 2 through 12 are grossly intact. Upper extremity strength bilaterally 5/5, lower ext remities left 5 x 5, right 4 x 5, limited due to hip surgery yesterday and discomfort Assessment: -Status post right total hip arthroplasty -Right-sided facial droop with upper extremity weakness and slurring, possible acute TIA, CT brain was negative, neurology following. -Positive orthostatic hypotension; dose of lisinopril has been decreased -History of anxiety -Hyperlipidemia -Essential hypertension -Primary osteoarthritis -GI prophylaxis -DVT prophylaxis -Full code Plan: Patient is status post right total hip arthroplasty awaiting to work with physical therapy and was transferred down to the ICU after code stroke was called as patient was noted to have right facial droop with slurring and right upper extremity weakness. Patient feels it was possibly medication effect she had just received pain medications Neurology consulted and underwent CT of the brain which was negative, angio was negative. Patient currently on baby aspirin twice daily per orthopedics and will await neurological recommendations Decrease blood pressure medications and follow up orthostatic blood pressure Qshift. Event monitor on discharge. Follow-up on repeat labs and review and resume home medications as appropriate We will continue to follow with orthopedics during hospitalization and if requiring further workup other than surgical intervention, may transfer to medicine service for continued care Thank you kindly for this consultation. Possible D/C in the next 24 hours The impression and plan of care has been dictated by Nazanin Mix, Nurse Practitioner as directed. Dr. Caleb MD I have performed a history and physical examination and medical decision making of this patient, discussed the same with the dictator, and agree with the dictators assessment and plan as written, documented as a scribe. Based on total visit time, I have performed more than 50% of this visit. Objective - Vital Signs Vital signs: Vital Signs Temp 98.2 F 03/13/24 19:39 Pulse 79 03/13/24 19:39 Resp 18 03/13/24 19:39 BP 145/79 03/13/24 19:39 Pulse Ox 98 03/13/24 19:39 FiO2 Intake & Output 03/13/24 03/13/24 03/14/24 06:59 18:59 06:59 Intake Total 964 Output Total 375 Balance 589 Intake: IV 10 Invasive Line 2 10 Intake, IV Titration 600 Amount Sodium Chloride 0.9% 1, 600 000 ml @ 75 mls/hr IV . [id number] RICHARD Rx#:[id number] Oral 354 Output: Urine 375 Other: Voiding Method Toilet Toilet # Voids 1 1 - Labs CBC & Chem 7: 03/12/24 06:43 03/12/24 06:43 Labs: Abnormal Lab Results - Last 24 Hours (Table) 03/13/24 Range/Units 03:29 POC Glucose (mg/dL) 155 H (70-110) mg/dL Assessment and Plan Time with Patient: Less than 30
--- NOTE | 2024-03-14 00:33 | P.PN ---
Subjective Progress Note Date: 03/13/24 Patient was seen for a follow-up. All symptoms have resolved. She feels fine. No new symptoms. Objective - Vital Signs Vital signs: Vital Signs Temp 98.0 F 03/13/24 12:12 Pulse 77 03/13/24 15:25 Resp 16 03/13/24 15:25 BP 163/81 03/13/24 15:25 Pulse Ox 98 03/13/24 15:25 FiO2 Intake & Output 03/12/24 03/13/24 03/13/24 18:59 06:59 18:59 Intake Total 245 846 Output Total 675 375 Balance -430 471 Intake: IV 5 10 Invasive Line 1 5 Invasive Line 2 10 Intake, IV Titration 600 Amount Sodium Chloride 0.9% 1, 600 000 ml @ 75 mls/hr IV . [id number] [facility] Rx#:[id number] Oral 240 236 Output: Urine 675 375 Other: Voiding Method Toilet Toilet Toilet Bedpan # Voids 1 1 1 - Exam Examination completely nonfocal. - Labs CBC & Chem 7: 03/12/24 06:43 03/12/24 06:43 Labs: Abnormal Lab Results - Last 24 Hours (Table) 03/13/24 Range/Units 03:29 POC Glucose (mg/dL) 155 H (70-110) mg/dL Assessment and Plan Assessment: * Probable TIA, manifesting with right facial droop, slurred speech and right arm weakness. Symptoms have completely resolved. Current NIH stroke scale is 0. * Hypertension * Hyperlipidemia * Status post right knee arthroplasty Plan: Patient's symptoms have resolved. Current NIH stroke scale is 0. Patient not a candidate for TPA or thrombectomy. 2-D echo revealed preserved left ventricular size and systolic function, with EF 55 to 60%. No obvious regional wall motion abnormalities. Mildly increased left atrial volume. Normal right atrial size. In the body of report it mentions negative agitated saline bubble study for [id number] shunt. However the conclusion mentions "suboptimal bubble study". CTA head and neck normal. Fasting a.m. lipid panel with cholesterol 140, LDL 64, HDL 52 and triglycerides 113. Continue Lipitor 20 mg (home dose) Hemoglobin A1c 5.8 Optimize control of blood pressure Agree with starting aspirin 81 mg twice a day. Patient's ABCD2 score was 5, which is moderate risk. May consider dual antiplatelet medication for 21 days (including aspirin 81 mg and Plavix 75 mg) if no post-surgical contraindication. After 21 days, may stop Plavix, and continue aspirin indefinitely. Neuro checks every 2 hours. Consider 30 day event monitor at discharge to rule out PAF. Telemetry monitoring rule out any arrhythmia PT, OT, speech therapy DVT prophylaxis: Heparin 5000 units subcu every 8 hours Neurologically clear for discharge. Dr. Gigi Chadwick available for any neurological concerns in the morning.
[2024-03-14 00:55] VITALS: RESP 16
[2024-03-14] MEDS: lisinopriL 20 MG TAB PO SCH (08:35)
[2024-03-14 09:09] LABS: Basophils % (A) 0 %; Eosinophils # (A) 0.1 k/uL (0-0.7); Eosinophils % (A) 1 %; HGB 12.2 gm/dL (11.4-16.0); Lymphocytes % (A) 23 %; MCH 29.6 pg (25.0-35.0); MCHC 32.1 g/dL (31.0-37.0); MCV 92.1 fL (80.0-100.0); Mean Platelet Volume 7.8; Monocytes # (A) 0.5 k/uL (0-1.0); Monocytes % (A) 6 %; Neutrophils # (A) 5.7 k/uL (1.3-7.7); Neutrophils % (A) 68 %; Platelet Count 330 k/uL (150-450); RBC 4.12 m/uL (3.80-5.40); WBC 8.4 k/uL (3.8-10.6)
[2024-03-14] MEDS: lisinopriL 5 MG TAB PO STA (12:21)
--- NOTE | 2024-03-14 12:24 | P.PN ---
Subjective Patient is doing better this morning. Some pain in hip. Denies CANCHOLA/CP/SOB. Objective - Vital Signs Vital signs: Vital Signs Temp 97.9 F 03/14/24 08:00 Pulse 77 03/14/24 11:43 Resp 16 03/14/24 11:43 BP 200/113 03/14/24 12:12 Pulse Ox 100 03/14/24 11:43 FiO2 Intake & Output 03/13/24 03/14/24 03/14/24 18:59 06:59 18:59 Intake Total 964 360 Output Total 375 Balance 589 360 Intake: IV 10 Invasive Line 2 10 Intake, IV Titration 600 Amount Sodium Chloride 0.9% 1, 600 000 ml @ 75 mls/hr IV . [id number] [facility] Rx#:[id number] Oral 354 360 Output: Urine 375 Other: Voiding Method Toilet Toilet Toilet # Voids 1 1 1 # Bowel Movements 1 - Exam Resting comfortably in bed. Alert and oriented. Dressing over hip intact. Fem oral nerve function intact. Moves foot/ankle up/down. - Labs CBC & Chem 7: 03/14/24 08:29 03/12/24 06:43 Assessment and Plan Plan: Patient is doing well in regards to her hip. I would like her to work again with PT. She is ok to discharge from an orthopaedic standpoint when cleared by PT and Internal medicine.
[2024-03-14 13:21] VITALS: BP 180/86; PULSE 77; TEMP 97.9
--- NOTE | 2024-03-17 00:03 | P.PN ---
Subjective Progress Note Date: 03/14/24 Medical management Requesting physician: Norman Salgado - Chief Complaint Right hip surgery - History of Present Illness Very pleasant 63-year-old patient follows Dr. Morales. Chronic stable medical co nditions include hypertension, hyperlipidemia, osteoarthritis. Anxiety. Patient has undergone right total hip arthroplasty. Postprocedure laying in bed. Pain controlled. No nausea vomiting. No cardiac symptoms. 03/12/2024 Patient is seen this morning in the ICU as patient was called a code stroke earlier this morning. Nursing staff assessing the patient and noticed a right- sided facial droop and noted to have facial slurring and some mild right upper extremity weakness. Patient underwent angio CT as well as CT of the brain which were negative with no acute process noted. Neurology was consulted and at the time of examination, symptoms have resolved. Patient is status post right hip arthroplasty yesterday. Patient feels it was possibly related to narcotic medication although will undergo further neurological workup. Patient is afebrile denies chest pain or shortness of breath. Patient reports able to tolerate diet with no reported nausea or vomiting 03/13/2024 Patient is evaluated today in follow up. Has been transitioned out of the ICU and on the stepdown unit. Neurology following. Patients right sided facial droop, facial slurring and right upper ext. weakness did resolve. Patient went to stand up today had an episode again while up ambulating. Had positive orthos went from 175 to 152 systolic. Symptoms completely resolved. Echocardiogram comes back revealing preserved LV size and systolic function with suboptimal bubble study. 03/14/2024 Patient was evaluated in follow up by neurology and recommending no further work up was cleared for discharge. Patient was recommended for event monitor however she refused and wanted to speak with her family doctor about an event monitor outpatient. Patients lisinopril dose was cut back and she is now hypertensive in the 200s systolic. She would agree to only 5 mg extra of lisinopril and had improvement of her blood pressure down to 180/86. Her orthostatic blood pressure is now negative and she is not having any dizziness or lightheadedness and she has been up ambulating. She will monitor her blood pressure at home. Orthopedics recommending aspirin 81 mg daily for the next 30 days. Patient to follow up with her PCP Dr. Isak Morales in 1 to 2 days post discharged. Medically she will be cleared for DC. Review of systems: Constitutional: No reports of fatigue, fever, or chills Cardiovascular: No reports of chest pain or palpitations Respiratory: No reports of shortness of breath or cough GI: No reports of nausea, vomiting, or diarrhea : No reports of dysuria or retention Neurovascular: reports of generalized weakness with some right hip discomfort All medications have been reviewed Physical exam: Gen: This is a 63-year-old female who is awake, alert and oriented x 3, well- developed, well-nourished HEENT: Head is atraumatic, normocephalic. Pupils equal, round. Sclerae is anicteric. NECK: Supple. No JVD. No lymphadenopathy. No thyromegaly. LUNGS: Clear to auscultation. No wheezes or rhonchi. No intercostal retractions. HEART: Regular rate and rhythm. No murmur. ABDOMEN: Soft. Bowel sounds are present. No masses. No tenderness. EXTREMITIES: No pedal edema. No calf tenderness. Right hip surgical site is dry with no significant redness or swelling noted NEUROLOGICAL: Patient is awake, alert and oriented x3. Cranial nerves 2 through 12 are grossly intact. Upper extremity strength bilaterally 5/5, lower extremities left 5 x 5, right 4 x 5, limited due to hip surgery yesterday and d iscomfort Assessment: -Status post right total hip arthroplasty -Right-sided facial droop with upper extremity weakness and slurring, possible acute TIA, CT brain was negative, neurology following. -Positive orthostatic hypotension; dose of lisinopril has been decreased -History of anxiety -Hyperlipidemia -Essential hypertension -Primary osteoarthritis -GI prophylaxis -DVT prophylaxis -Full code Plan: Patient is status post right total hip arthroplasty awaiting to work with physical therapy and was transferred down to the ICU after code stroke was called as patient was noted to have right facial droop with slurring and right upper extremity weakness. Patient feels it was possibly medication effect she had just received pain medications Neurology consulted and underwent CT of the brain which was negative, angio was negative. Patient currently on baby aspirin twice daily per orthopedics. Decrease blood pressure medications and follow up orthostatic blood pressure Qshift. Event monitor on discharge which was refused by the patient and she will be discussing this with her PCP Dr. Morales outpatient. We will recommend to monitor blood pressure at home daily and keep log for follow up. Thank you kindly for this consultation. The impression and plan of care has been dictated by Nazanin Mix, Nurse Practitioner as directed. Dr. Caleb MD I have performed a history and physical examination and medical decision making of this patient, discussed the same with the dictator, and agree with the dictators assessment and plan as written, documented as a scribe. Based on total visit time, I have performed more than 50% of this visit. Objective - Vital Signs Vital signs: Vital Signs Temp 97.9 F 03/14/24 08:00 Pulse 77 03/14/24 11:43 Resp 16 03/14/24 11:43 BP 200/113 03/14/24 12:12 Pulse Ox 100 03/14/24 11:43 FiO2 Intake & Output 03/13/24 03/14/24 03/14/24 18:59 06:59 18:59 Intake Total 964 360 Output Total 375 Balance 589 360 Intake: IV 10 Invasive Line 2 10 Intake, IV Titration 600 Amount Sodium Chloride 0.9% 1, 600 000 ml @ 75 mls/hr IV . [id number] [facility] Rx#:[id number] Oral 354 360 Output: Urine 375 Other: Voiding Method Toilet Toilet Toilet # Voids 1 1 1 # Bowel Movements 1 - Labs CBC & Chem 7: 03/14/24 08:29 03/12/24 06:43 Assessment and Plan Time with Patient: Less than 30
== END 2024-03-14 14:10 | disposition home health service (06) ==
LOC: OR 06:20 → 4SSUR 13:21 → 2SICU 03-12 06:38 → 3SCARD 03-12 18:32 → OR 03-14 14:10
PROVIDERS: ATTEND Orthopaedic Surgery
DX: M16.11 Unilateral primary osteoarthritis, right hip (principal); G89.18 Other acute postprocedural pain; I95.1 Orthostatic hypotension; R29.810 Facial weakness; R53.1 Weakness; R47.81 Slurred speech; E78.5 Hyperlipidemia, unspecified; F41.9 Anxiety disorder, unspecified; I10 Essential (primary) hypertension; Z79.82 Long term (current) use of aspirin; Z79.899 Other long term (current) drug therapy; Z79.1 Long term (current) use of non-steroidal anti-inflammatories (NSAID)
CPT/HCPCS: 93306; 97162; 64447; 80061; 80053; 84484; 85025 ×2; 85610; 85730; 73501; 70496; 70450; 70498; 27130; C1776; J2250; J1100; J0690 ×2; J2405; J3490; J1885; J1170; Q9967